=== PATIENT | female | born 1960 | race Caucasian/White ===

== ENCOUNTER → 2017-02-16 | Outpatient (CLI) | payer OTHER ==
[~2017-02-16] MED LIST: CITA20TA4; LISI1POW; LOVA20TA2; MINO100C2; SITA1TAB6; TMZP15C; ZLP10T; ZOLP12.5; [UNRECOGNIZED DRUG - CODE]; [UNRECOGNIZED DRUG - CODE]
== END ==
DX: M54.5 Low back pain (principal)

== ENCOUNTER 2017-03-30 13:37 | Outpatient (RCR) | payer OTHER | END 2017-04-26 11:40 | disposition home or self-care (01) | PROVIDERS: ATTEND Family Medicine | DX: M51.36 Other intervertebral disc degeneration, lumbar region (principal) ==

== ENCOUNTER → 2018-09-25 | Outpatient (CLI) | payer OTHER ==
--- NOTE | 2018-09-25 14:07 | Diagnostic Imaging Report ---
INDICATION: COUGH BILATERAL CRACKLES COMPARISON: 12/17/2008 FINDINGS: Frontal and lateral views of the chest demonstrate normal heart size and pulmonary vascularity. The lungs are clear. There are no signs of infiltrate, pleural effusions or pneumothoraces. The visualized osseous structures show no acute abnormalities. IMPRESSION: 1. No acute process. No signs of infiltrates, effusions or pneumothoraces. Dictated by: Dictated on workstation # [id number]
== END ==
LOC: RAD 13:45
PROVIDERS: ATTEND Family Medicine
DX: R05 Cough (principal); R09.89 Other specified symptoms and signs involving the circulatory and respiratory systems
CPT/HCPCS: 71046